=== PATIENT | female | born 2000 | race Two or more races ===

== ENCOUNTER 2024-11-12 02:45 | Emergency (ER) | payer SELFPAY ==
[~2024-11-12] VITALS: Ht 162.6 cm; Wt 70.3 kg
[2024-11-12] MEDS ORDERED: predniSONE 20 MG TABLET ONE (04:04)
[2024-11-12] MEDS: predniSONE 50 MG TABLET PO ONE (04:09)
[2024-11-12] MEDS: hydrOXYzine 10 MG TABLET ONE ×2 (04:10→04:21)
[2024-11-12] MEDS: ALBUTEROL FS 2.5 MG/3 ML VIAL.NEB NEB ONE (04:11)
[2024-11-12] MEDS ORDERED: ALBUTEROL FS 2.5 MG/3 ML VIAL.NEB ONE (04:12)
[2024-11-12 04:15] VITALS: O2SAT 100
[2024-11-12] MEDS: hydrOXYzine 10 MG TABLET PO ONE (04:29)
[2024-11-12 04:30] VITALS: O2SAT 100
[2024-11-12] MEDS ORDERED: HYDR50TA61 PO (05:25)
[2024-11-12] MEDS ORDERED: ALPRAZOLAM 0.25 MG TABLET ONE (05:35)
[2024-11-12] MEDS: ALPRAZOLAM 0.25 MG TABLET PO ONE (05:40)
[2024-11-12 07:09] VITALS: BP 110/78; TEMP 98; O2SAT 100
== END 2024-11-12 07:09 | disposition home or self-care (01) ==
LOC: ER 02:47
DX: F41.0 Panic disorder [episodic paroxysmal anxiety] (principal); R00.2 Palpitations; J45.909 Unspecified asthma, uncomplicated; Z88.2 Allergy status to sulfonamides; Z88.6 Allergy status to analgesic agent; Z86.79 Personal history of other diseases of the circulatory system
CPT/HCPCS: 99285; 94640; Q0177 ×2; J7512